=== PATIENT | female | born 1970 | race Caucasian/White ===

== ENCOUNTER 2018-04-29 06:35 | Day surgery (SDC) | payer OTHER ==
[~2018-04-29 06:35] MED LIST: COZAAR25 MG PO; ZETIA10 MG PO
[2018-04-29] MEDS ORDERED: PERCOCET 5-3251 EACH PO (12:05)
== END 2018-04-29 14:45 | disposition home or self-care (01) ==
LOC: CIR.AMB 06:35
DX: D35.1 Benign neoplasm of parathyroid gland (principal)

== ENCOUNTER 2019-09-09 07:48 | Outpatient (CLI) | payer OTHER ==
[~2019-09-09 07:48] MED LIST changes: +PERCOCET 5-3251 EACH PO
== END 2019-09-09 07:52 | disposition home or self-care (01) ==
LOC: SONOGRAMA 07:48
DX: E04.1 Nontoxic single thyroid nodule (principal)

== ENCOUNTER 2020-07-06 10:00 | Inpatient (IN) | payer OTHER ==
[~2020-07-06] VITALS: Ht 160 cm; Wt 69.9 kg
[2020-07-06] MEDS ORDERED: COZAAR50 MG PO (13:24)
[2020-07-06] MEDS ORDERED: CRESTOR5 MG PO (13:24)
[2020-07-06] MEDS ORDERED: SYMBICORT 16010.2 GM IH (13:25)
[2020-07-06] MEDS ORDERED: VITAMIN D PO (13:25)
[2020-07-06] MEDS ORDERED: SINGULAIR10 MG PO (13:26)
[2020-07-06] MEDS ORDERED: DYMISTA NASAL S23 GM IH (13:26)
[2020-07-06] MEDS ORDERED: PROAIR HFA8.5 GM IH (13:28)
[2020-07-10] MEDS ORDERED: VITAMIN D3125 MC1 (09:58)
== END 2020-07-11 10:54 | disposition home or self-care (01) | DRG 627 ==
LOC: O/R 07-09 10:00 → SURG 07-10 15:20
PROVIDERS: ADMIT Surgery; ATTEND Surgery
PROC: 0GBL0ZZ Excision of Right Superior Parathyroid Gland, Open Approach (ICD-10-PCS; 2020-07-10)
PROC: 0GBN0ZZ Excision of Right Inferior Parathyroid Gland, Open Approach (ICD-10-PCS; principal; 2020-07-10 10:45)
DX: D35.1 Benign neoplasm of parathyroid gland (principal); E21.0 Primary hyperparathyroidism; I10 Essential (primary) hypertension